=== PATIENT | male | born 1995 | race African-American/Black ===

== ENCOUNTER 2016-10-19 02:12 | Emergency (ER) | payer OTHER ==
[2016-10-19 02:13] VITALS: BP 158/94; PULSE 85; RESP 22; TEMP 98.5; O2SAT 98
--- NOTE | 2016-10-19 03:06 | RADRPT ---
EXAM DATE/TIME: 10/19/2016 02:49 [place] COMPARISON: No previous studies available for comparison. INDICATIONS : Left shoulder pain with abrasion to the scapula region post fall while bowling. MEDICAL HISTORY : None. SURGICAL HISTORY : None. ENCOUNTER: Initial ACUITY: 1 day PAIN SCORE: 6/10 LOCATION: Left upper extremity FINDINGS: Multiple view examination of the left shoulder demonstrates no evidence of fracture or dislocation. The glenohumeral and acromioclavicular joints are maintained. There is normal range of motion betwee n internal and external rotation. Bony mineralization is normal. CONCLUSION: 1. Negative examination of the shoulder. Mo Edmond MD on October 19, 2016 at 3:04 Board Certified Radiologist. This report was verified electronically.
[2016-10-19] MEDS ORDERED: CEPHALEXIN MONOHYDRATE 500 MG CAP PO ONE (03:15)
[2016-10-19] MEDS ORDERED: DIPHTH/TETANUS/ACEL PERTUSSIS (BOOSTER) 0.5 ML VIAL/PFS IM ONE (03:15)
[2016-10-19] MEDS ORDERED: CYCL5TAB PO (03:29)
[2016-10-19] MEDS ORDERED: NAPR1TAB34 PO (03:29)
--- NOTE | 2016-10-19 03:35 | PD ---
HPI Chief Complaint: Injury Time Seen by Provider: 02:31 Travel History International Travel<30 days: No Contact w/Intl Traveler<30days: No Traveled to known affect area: No History of Present Illness HPI The patient is a 21 year old male who presents to the [facility] emergency department with a history of left shoulder pain that began while he was bowling. He reports that he felt like his shoulder slipped out of place. He reports that it caused him to fall to the ground. He now has an abrasion along the left upper back. The patient denies any prior history of shoulder surgery or shoulder dislocation. He denies having any other injuries associated with this. Unsure when his tetanus was last updated. A review of systems, the patient denies any headache, neck pain, chest pain, chest pressure, shortness of breath, abdominal pain, recent vomiting or diarrhea. He denies having any numbness or tingling to his extremities. He denies having any weakness to his extremities. PFS Past Medical History Narrative Medical The patient's past medical history is reportedly none. Medical History: Denies Significant Hx Diminished Hearing: No Tetanus Vaccination: > 5 Years Influenza Vaccination: No Past Surgical History Narrative Surgical The patient's past surgical history is reportedly none. Surgical History: No Previous Surgery Social History Alcohol Use: Yes (OCC) Tobacco Use: No Substance Use: No Allergies-Medications (Allergen,Severity, Reaction): Coded Allergies: No Known Allergies (Unverified , 10/19/16) Reported Meds & Prescriptions Reported Meds & Active Scripts Active Flexeril (Cyclobenzaprine HCl) 5 Mg Tab 5 Mg PO TID PRN Naproxen EC (Naproxen) 500 Mg Tabdr 500 Mg PO BID PRN Review of Systems Except as stated in HPI: all other systems reviewed are Neg General / Constitutional: No: Fever Eyes: No: Visual changes HENT: No: Headaches Cardiovascular: No: Chest Pain or Discomfort Respiratory: No: Shortness of Breath Gastrointestinal: No: Abdominal Pain Genitourinary: No: Dysuria Musculoskeletal: Positive: Myalgias, Limited ROM, Pain Skin: No Rash Neurologic: No: Weakness Psychiatric: No: Depression Endocrine: No: Polydipsia Hematologic/Lymphatic: No: Easy Bruising Physical Exam Narrative General: The patient is a well-developed well-nourished male in no acute distress. Head and Neck exam: Head is normocephalic atraumatic. Eyes: EOMI, pupils are equal round and reactive to light. Nose: Midline septum with pink mucous membranes Mouth: Dentition unremarkable. Moist mucus membranes. Posterior oropharynx is not erythematous. No tonsillar hypertrophy. Uvula midline. Airway patent. Neck: No palpable lymphadenopathy. No nuchal rigidity. No thyromegaly. Cardiovascular: Regular rate and rhythm without murmurs, gallops, or rubs. Lungs: Clear to auscultation bilaterally. No wheezes, rhonchi, or rales. Abdomen: Soft, without tenderness to palpation in all 4 quadrants of the abdomen. No guarding, rebound, or rigidity. Normal bowel sounds are audible. No tenderness on palpation of McBurney's point. Extremities: No clubbing, cyanosis, or edema. 2+ pulses in all 4 extremities. On examination of the area of interest, the left shoulder, the patient has no proximal humerus tenderness on palpation. No deformity of the left shoulder. No crepitus or step-off. The patient has decreased range of active motion, however passive motion he has full movement of the left shoulder. No loss of fullness in the glenoid fossa. The patient on examination of the posterior left shoulder is noted to have along the left upper trapezius an area of abrasion. This is superficial. Bleeding is controlled. Back: No spinous process tenderness to palpation. No costovertebral angle tenderness to palpation. Neurologic Exam: Grossly nonfocal. Skin Exam: No rash noted. Data Data Last Documented VS Vital Signs Date Time Temp Pulse Resp B/P Pulse Ox O2 Delivery O2 Flow Rate FiO2 10/19/16 02:29 20 100 Room Air 10/19/16 02:13 98.5 85 158/94 Orders Shoulder, Complete (>2vws) (10/19/16 02:31) [id number] (Booster) Inj (Boostrix (10/19/16 03:15) Cephalexin (Keflex) (10/19/16 03:15) Ice/Cold Pack (10/19/16 03:01) Splint Or Brace Apply/Monitor (10/19/16 03:01) Sling Cradle Arm (10/19/16 ) MDM Medical Decision Making Medical Screen Exam Complete: Yes Emergency Medical Condition: Yes Medical Record Reviewed: Yes Interpretation(s) Last Impressions Shoulder X-Ray 10/19/16 0231 Signed Impressions: Service Date/Time: Wednesday, October 19, 2016 02:49 - CONCLUSION: 1. Negative examination of the shoulder. Mo Edmond MD Differential Diagnosis Abrasion, versus shoulder dislocation, versus proximal humerus fracture Narrative Course During the course of the patients emergency department visit, the patients history, examination, and differential diagnosis were reviewed with the patient. The patient had an x-ray of the left shoulder ordered. The patient was initially provided an update of his tetanus. The patient was given Keflex 500 mg by mouth 1. The patient was given ibuprofen for pain. Radiology studies were reviewed and remarkable for an x-ray of the left shoulder that shows no acute abnormality. The patient will be discharged home after an ice pack is applied in a shoulder sling is applied for his discomfort. The patient was given a prescription for Flexeril and Naprosyn at discharge. The patient is resting comfortably and feels better, is alert and in no distress. The patients results and examination findings were discussed with the patient. The repeat examination is unremarkable and benign. The history, exam, diagnostic testing, and current condition do not suggest any significant pathology to warrant further testing, continued ED treatment, admission, or surgical evaluation at this point. The vital signs have been stable. The patient does not have uncontrollable pain, intractable vomiting, or other significant symptoms. The patient's condition is stable and appropriate for discharge. The patient will pursue further outpatient evaluation with a primary care physician or other designated or consulting physician as indicated in the discharge instructions. The patient expressed understanding and was agreeable with this plan. Diagnosis Primary Impression: Shoulder pain, left Qualified Code: M25.512 - Acute pain of left shoulder Additional Impression: Abrasion Referrals: Primary Care Physician 3 days Patient Instructions: Abrasion (ED), General Instructions, Shoulder Pain (ED) Med/Other Pt SpecificInfo: Prescription(s) given Scripts Cyclobenzaprine (Flexeril)5 Mg Tab5 Mg PO TID PRN (SPASM) #12 TAB Ref 0 Prov:Danita Hunt MD 10/19/[address] (Naproxen EC)500 Mg [id number] Mg PO BID PRN (PAIN GREATER THAN 5) # 10 TAB Ref 0 Prov:Danita Hunt MD 10/19/16 Disposition: 01 DISCHARGE HOME Condition: Stable Danita Hunt MD October 19, 2016 03:35
== END 2016-10-19 04:13 | disposition home or self-care (01) ==
LOC: NEPC 02:12
DX: M25.512 Pain in left shoulder (principal); S20.412A Abrasion of left back wall of thorax, initial encounter; Z23 Encounter for immunization; W19.XXXA Unspecified fall, initial encounter; Y93.54 Activity, bowling
CPT/HCPCS: 73030; 90471; 90715